=== PATIENT | female | born 1990 | race Caucasian/White ===

== ENCOUNTER 2020-06-17 23:37 | Inpatient (IN) | payer OTHER ==
[~2020-06-17] VITALS: Ht 149.9 cm; Wt 77.6 kg
--- NOTE | 2020-06-17 23:30 | NUR ---
The patient, EVA MOY, 29 y/o, F admitted by MARLON MORGAN MD, was given written information regarding hospital policies, unit procedures and contact persons. RN received report from Aminah HOYT at [place] at 2223, patient was then transported from [place] via EMS at 2330 to room 440 at [place]. Patient was transported by [facility], at that time the RN performed a head to toe assessment on the patient, VSS, afebrile, and pain was rated a 2/10 at that time. Bed is in lowest locked position and the call light is within reach. Valuables were checked and left in the room with the patient. RN will continue to monitor the patient closely.
[2020-06-18] VITALS (7 sets, daily range): BP systolic 105–141; BP diastolic 71–102
[2020-06-18] MEDS ORDERED: ONDANSETRON PF 4 MG/2 ML VIAL. IVP PRN (00:30)
[2020-06-18] MEDS: IV DEXTROSE 5 %-0.45 % NACL 1,000 ML IV SCH ×2 (01:09→16:24)
[2020-06-18] MEDS: fentaNYL PF VIAL 100 MCG/2 ML VIAL IVP PRN ×2 (01:21→12:14)
--- NOTE | 2020-06-18 08:01 | HP ---
ADMIT DATE: 06/18/2020 HISTORY OF PRESENT ILLNESS: The patient is a 29-year-old female patient who presented to the Emergency Room of [facility] with a complaint of flank pain. In fact, her pain was on the left side radiating into her abdomen. The patient states the symptoms started about 3 days ago, but today the pain has been constantly sharp. The patient denies any nausea, vomiting or diarrhea. Denied any fever. Denied any dysuria, frequency or hematuria. She has not taken anything for pain. She was extensively evaluated in the Emergency Room of [facility] and has had lab work that was mostly unremarkable. Urinalysis showed that she has 5-10 wbc's, moderate amount of bacteria. Her test was negative and she had a chest x-ray that was unremarkable; however, her CT scan of the abdomen and pelvis showed that the patient's gallbladder wall is thickened with associated pericholecystic infiltration of the calcified gallstone with most consistent acute cholecystitis. The gallstone is likely seen within the cystic duct with moderate colonic stool content. No bowel obstruction. Trace pleural effusion. She was transferred to [facility] to consult the surgical team. PAST MEDICAL HISTORY: Significant for hypertension. PAST SURGICAL HISTORY: Significant for appendectomy. ALLERGIES: She has no known drug allergies. MEDICATIONS: She is on antihypertensive medication, but does not know the name of it or the dose. FAMILY HISTORY: Unremarkable. SOCIAL HISTORY: She is , has 1 daughter. She does not smoke, drink alcohol or use recreational drugs. She is a [id number] mom. PHYSICAL EXAMINATION: GENERAL: On arrival to the Emergency Room, she looked well and was clearly in no apparent respiratory distress. No pallor, jaundice, cyanosis or thyromegaly. No jugular venous distention. No limb edema. VITAL SIGNS: Her heart rate was 82, blood pressure was 142/80, temperature was 98.3, respiratory rate was 18 and oxygen saturation was 98%. HEAD, EYES, EARS, NOSE AND THROAT: Normocephalic, atraumatic. NECK: Supple. HEART: Showed normal first and second heart sounds. No gallop or murmur. CHEST: Clear to auscultation. No crepitation or rhonchi. ABDOMEN: Slightly distended, soft, nontender. There is no guarding or rigidity. No organomegaly. All hernial orifice intact. Bowel sounds normal. NEUROLOGIC: She is awake, alert, responding appropriately. All cranial nerves intact. EXTREMITIES: She moves extremities without difficulty. She ambulates without assistance or assistive devices. LABORATORY DATA: Showed a white cell count 9300, hemoglobin 14, hematocrit 43, MCV 85 and platelet count 260,000. Her chemistry showed a serum sodium 136, potassium 3.6, chloride 101, bicarbonate 29, anion gap of 6, BUN 14 and creatinine 0.7. Estimated GFR was 98 mL per minute. Her glucose was 96 and calcium was 9.8. Total bilirubin, AST, ALT and alkaline phosphatase were normal. Total protein was 7.9. Albumin was 3.7. Urinalysis showed the urine was straw colored, hazy with a pH of 7, specific gravity of 1.025. The urine was negative for protein, glucose, ketones, blood, nitrite and bilirubin. The urine was negative for leukocyte esterase, 3-5 rbc's, 5-10 wbc's, and moderate amount of bacteria. Her urine test was negative. Her chest x-ray showed the heart is not enlarged. Mediastinal and hilar contours are normal. No focal parenchymal airspace opacity. No pleural effusion or pneumothorax. Her CT scan of the abdomen and pelvis showed that there is trace pleural effusion or pleural thickening. Liver, spleen, adrenal glands and pancreas unremarkable. Duodenal diverticulum is seen. There is wall thickening about the gallbladder with pericholecystic fluid and calcified gallstone consistent with cholecystitis. High density focus within the cystic duct, likely gallstone within the cystic duct. No biliary ductal dilatation. Moderate colonic stool content is seen. Mild infiltration around the hepatic flexure, likely reactive from adjacent gallbladder change. No small or large bowel dilatation or bowel obstruction. A few mildly prominent mesenteric lymph nodes are seen. No abdominal or pelvic lymphadenopathy by size criteria. She has intrauterine device seen within the uterus. Bladder is unremarkable. Fat containing lesion at the lower pole of the right kidney, likely angiomyolipoma. No hydronephrosis and hydroureter. Trace fat containing periumbilical hernia seen. No aggressive osseous lesion is seen. ASSESSMENT: The patient was transferred to [facility] with acute cholecystitis, although her symptoms are not consistent with acute cholecystitis. Her pain mostly was in the left flank area. PLAN: My plan is to keep her n.p.o., continue with IV fluid, IV pain medication and antiemetic, and consult the surgical team for further evaluation and treatment. MARLON MORGAN MD DR: FLIP/raf JOB#: [id number] / [id number]
--- NOTE | 2020-06-18 09:25 | PDOC2 ---
VLAD CABRERA Ian JOURNEYMAN [employer]ET MET[employer] WORKER 06/18/20 0925: CONSULT Date of Consult Date of Consult DATE: 06/18/20 TIME: 09:19 Reason for Consult Reason for Consult: possible cholecystitis Referring Physician Referring Physician: Dr Zhao Identification/Chief Complaint Chief Complaint left flank pain Source Source: Chart review, Patient History of Present Illness Reason for Visit: 3 days of left flank pain, some radiation to left back.. Seemed to happen at night, although yesterday became constant. Some mild nausea, however no emesis. No constipation or diarrhea, no similar pain in past Past Medical History Cardiovascular: HTN Past Surgical History Past Surgical History: Appendectomy Family History Family History: Other (noncontributory to current illness ) Social History No ALCOHOL: rare Drugs: None Current Medications Current Medications Current Medications Fentanyl Citrate (Fentanyl 2ml Vial) 50 mcg PRN Q3HRS PRN IVP PAIN Last administered on 06/18/20at 01:21; Start 06/18/20 at 00:30 Dextrose/Sodium Chloride 1,000 ml @ 75 mls/hr [id number] IV Last administered on 06/18/20at 01:09; Start 06/18/20 at 00:30 Ondansetron HCl (Zofran) 4 mg PRN Q4HRS PRN IVP NAUSEA/VOMITING; Start 06/18/20 at 00:30 Allergies Allergies: Coded Allergies: No Known Drug Allergies (Unverified , 06/18/20) ROS General: No: Chills, Other (fevers ) PSYCHOLOGICAL ROS: No: Anxiety, Depression Eyes: No Blurry vision, No Double vision HEENT: No: Heacaches, Sore Throat Hematological and Lymphatic: No: Bleeding Problems, Blood Clots Gastrointestinal: Yes Other (see hpi) Genitourinary: No Dysuria, No Frequency, No Retention Musculoskeletal: No Joint Pain, No Muscle Pain Neurological: No Impaired Coord/balance, No Numbness/Tingling Skin: No Pruritus, No Rash Physical Exam General: Alert, Oriented X3, Cooperative HEENT: Atraumatic, PERRLA Lungs: Clear to auscultation, Normal air movement Heart: Regular rate, Normal S1, Normal S2 Abdomen: Soft, Other (ND, LUQ TTP, no ttp rUQ) Extremities: No clubbing, No cyanosis Skin: No rashes, No breakdown Neuro: Normal gait, Normal speech Psych/Mental Status: Mental status NL, Mood NL MUSCULOSKELETAL: No deformity, No swelling Vitals VITALS Vital Signs Date Time Temp Pulse Resp B/P (MAP) Pulse Ox O2 Delivery O2 Flow Rate FiO2 06/18/20 07:15 98.3 90 18 105/102 (103) 98 Room Air 98.3 Assessment/Plan Assessment/Plan LUQ pain, left flank pain CT with findings concerning for cholecystitis--no right sided pain, all left/flank will check lipase and US start abx surgery recs pending above DEMARCUS HENNESSY MD 06/19/20 0751: CONSULT Assessment/Plan Assessment/Plan Agree with above VLAD CABRERA APRN Jun 18, 2020 09:25 DEMARCUS HENNESSY MD Jun 19, 2020 07:51
--- NOTE | 2020-06-18 10:09 | NUR ---
SW following. Discussed with RN, pt from home, room air, NPO, abx. Pt having some testing done, surgical recommendations pending result of testing. RN advised no SW needs at this time. SW will continue to follow.
[2020-06-18 10:53] LABS: DIRECT BILIRUBIN 0.1 mg/dL (0.0-0.2); TOTAL BILIRUBIN 0.6 mg/dL (0.2-1.0); TOTAL PROTEIN 8.3 g/dL (6.4-8.2)
--- NOTE | 2020-06-18 11:05 | RAD ---
US ABDOMEN LTD History: Reason: Abnormal CT scan; ABD pain; eval gb / Spl. Instructions: / History: Comparison: CT June 17, 2020. Technique: Transabdominal ultrasound images are obtained of the right upper quadrant. Findings: Liver is normal in echogenicity. Right hepatic lobe measures 16.3 cm. Portal flow is hepatopedal. Gallbladder is difficult to evaluate due to technique and overlying structures. Cholelithiasis. Proba ble gallbladder wall thickening. Common bile duct measures 2.5 mm in diameter. Visualized pancreas is not well seen due to overlying bowel gas. The right kidney measures 10.4 x 4.6 x 4.4 cm. No hydronephrosis. Visualized portions of the aorta and IVC have normal caliber. IMPRESSION: 1. Degraded ultrasound evaluation of the gallbladder. Cholelithiasis with probable gallbladder wall thickening. HIDA scan can further gallbladder function as clinically warranted. Electronically signed by: Tez Hilario DO (06/18/2020 11:03 AM) [id number]
[2020-06-18] MEDS: PIPERACILLIN/TAZOBACTAM 3.375 GM in IV NORMAL SALINE 50ML 50 ML IV SCH ×3 (12:15→23:37)
[2020-06-18] MEDS ORDERED: NIFE60TA90 PO (15:02)
[2020-06-18] MEDS ORDERED: OMEP20CA16 PO (15:02)
[2020-06-18] MEDS: PANTOPRAZOLE 40 MG TABLET.DR. PO SCH (16:24)
[2020-06-19] VITALS (10 sets, daily range): BP systolic 115–133; BP diastolic 71–97
[2020-06-19] MEDS: IV DEXTROSE 5 %-0.45 % NACL 1,000 ML IV SCH ×2 (03:10→16:30)
[2020-06-19] MEDS: PIPERACILLIN/TAZOBACTAM 3.375 GM in IV NORMAL SALINE 50ML 50 ML IV SCH ×3 (06:21→17:39)
[2020-06-19] MEDS ORDERED: MORPHINE SULFATE 2 MG/ML VIAL. IV PRN (07:00)
[2020-06-19] MEDS ORDERED: IV RINGERS,LACTATED 1000ML 1,000 ML IV SCH (07:00)
[2020-06-19] MEDS ORDERED: PROCHLORPERAZINE 10 MG/2 ML VIAL. IV PRN (07:00)
[2020-06-19] MEDS ORDERED: HYDROmorphone 2 MG/ML VIAL IV PRN (07:00)
[2020-06-19] MEDS ORDERED: fentaNYL PF VIAL 100 MCG/2 ML VIAL IV PRN (07:00)
[2020-06-19 07:18] LABS: HEMATOCRIT 41.6 % (36.0-47.0); HEMOGLOBIN 13.8 g/dL (12.0-15.5); RED BLOOD COUNT 4.92 x10^6/uL (3.50-5.40); RED CELL DISTRIBUTION WIDTH 14.4 % (11.5-14.5); WHITE BLOOD COUNT 7.3 x10^3/uL (4.0-11.0)
[2020-06-19] MEDS: PANTOPRAZOLE 40 MG TABLET.DR. PO SCH (07:30)
[2020-06-19 07:50] LABS: ALBUMIN 3.3 g/dL (3.4-5.0); ALBUMIN/GLOBULIN RATIO 0.9 (1.0-1.7); CALCIUM 8.2 mg/dL (8.5-10.1); CREATININE 0.8 mg/dL (0.6-1.0); GFR 84.8; POTASSIUM 3.7 mmol/L (3.5-5.1); TOTAL BILIRUBIN 0.7 mg/dL (0.2-1.0); TOTAL PROTEIN 7.1 g/dL (6.4-8.2)
[2020-06-19] MEDS ORDERED: ONDANSETRON PF 4 MG/2 ML VIAL. ONE (11:48)
[2020-06-19] MEDS ORDERED: ROCURONIUM 50 MG/5 ML VIAL. ONE (11:48)
[2020-06-19] MEDS ORDERED: PROPOFOL 10 MG/ML (20ML) VIAL. IV ONE (11:48)
[2020-06-19] MEDS ORDERED: fentaNYL PF VIAL 250 MCG/5 ML VIAL ONE (11:48)
[2020-06-19] MEDS ORDERED: MIDAZOLAM HCL/PF 2 MG/2 ML VIAL. ONE (11:48)
[2020-06-19] MEDS ORDERED: DEXAMETHASONE SOD PHOS 4 MG/ML VIAL ONE (11:48)
[2020-06-19] MEDS ORDERED: LIDOCAINE 2% PF 5 ML VIAL. ONE (11:48)
[2020-06-19] MEDS ORDERED: BUPIVACAINE MPF 0.25% 30 ML VIAL. ONE (12:13)
[2020-06-19] MEDS ORDERED: SURGICEL HEMOSTAT 4X8 EACH. ONE (12:13)
[2020-06-19] MEDS ORDERED: IOHEXOL 300 MG/ML 50 ML VIAL. ONE (12:13)
--- NOTE | 2020-06-19 12:18 | PN ---
DATE: 06/19/2020 SUBJECTIVE: The patient is resting, slightly propped up in bed, in no apparent respiratory distress. On questioning her, denied any complaint. Nursing staff did not voice any concern and stated that she has an uneventful night. She is scheduled for laparoscopic cholecystectomy this morning. PHYSICAL EXAMINATION: GENERAL: On examining her, she looked well and was clearly in no apparent distress. No pallor, jaundice, cyanosis or thyromegaly. No jugular venous distention. No limb edema. VITAL SIGNS: Her heart rate was 93, blood pressure was 142/86, temperature was 97.4, respiratory rate was 18 and oxygen saturation was 96% on room air. HEENT: Examination of the head, eyes, ears, nose and throat showed normocephalic, atraumatic. NECK: Supple. HEART: Normal first and second heart sounds. No gallop or murmur. CHEST: Clear to auscultation. No crepitation or rhonchi. ABDOMEN: Soft, nontender. NEUROLOGIC: She is grossly intact. Her intake and output are incompletely recorded. LABORATORY DATA: Her lab work this morning showed a white cell count 7300, hemoglobin 14, hematocrit 42, MCV 85 and platelet count 240,000. Her serum sodium was 140, potassium 3.7, chloride 106, bicarbonate 25, anion gap of 9, BUN 7, creatinine 0.8, estimated GFR was 84 mL per minute. Her glucose was 95, calcium was 8.2. Total bilirubin, AST, ALT, alkaline phosphatase were normal. Total protein 7.1, albumin was 3.3. ASSESSMENT: 1. Acute calculous cholecystitis, scheduled for laparoscopic cholecystectomy sometimes this morning. 2. Hypertension. 3. Gastroesophageal reflux disease. MARLON MORGAN MD DR: FLIP/raf JOB#: [id number] / [id number]
[2020-06-19] MEDS ORDERED: KETOROLAC 30 MG/ML VIAL. ONE (13:11)
[2020-06-19] MEDS ORDERED: GLYCOPYRROLATE 1 MG/5 ML VIAL. ONE (13:12)
[2020-06-19] MEDS ORDERED: NEOSTIGMINE METHYLSULFATE 5 MG/5 ML SYRINGE. ONE (13:12)
--- NOTE | 2020-06-19 13:16 | RAD ---
EXAM: INTRAOPERATIVE CHOLANGIOGRAM. HISTORY: Gallbladder disease. Intraoperative cholangiogram with cholecystectomy. COMPARISON: None. FINDINGS: 3 fluoroscopic images are obtained intraoperatively during injection of the cystic duct rem nant after cholecystectomy. There are no filling defects to suggest retained stones. The common duct is not dilated. Fluoroscopy time 34 seconds. IMPRESSION: 1. No evidence of retained stones. Electronically signed by: Kevyn Guevara MD (06/19/2020 1:14 PM) [id number]
--- NOTE | 2020-06-19 13:24 | PDOC4 ---
Operative Note Operative Note Operative Note: Preoperative Diagnosis: Calculus cholecystitis Postoperative Diagnosis: Same Procedure: Laparoscopic cholecystectomy with intraoperative cholangiogram Surgeons: [employer] Manager: SHIRA Eng Anesthesia: Gen. Estimated Blood Loss: 10 mL Specimen: Gallbladder to pathology Drains: None Complications: None Indications: The patient is a 29-year-old female was admitted with abdominal pain. Her evaluation is consistent with calculus cholecystitis. Surgical treatment was offered by means of a laparoscopic cholecystectomy. The risks of surgery were discussed which include bleeding, infection, bile duct injury, bile leak, pain, the potential for additional surgeries or procedures. The patient understands and would like to proceed. Description: The patient was taken to the operating room and laid supine on the operating table. General anesthesia was performed. The abdomen was prepped with ChloraPrep and draped in a standard surgical fashion. A small infraumbilical incision was made with a scalpel. The Veress needle was then inserted and a pneumoperitoneum was then created. A 5 mm trocar was then inserted and the laparoscope was introduced. In the upper midabdomen a 5 mm trocar was inserted and in the right upper quadrant two 2.3 mm mini lap graspers were inserted. The gallbladder was retracted cephalad. The cystic duct was dissected free from surrounding tissues. One clip was placed on the duct near the gallbladder junction. An opening was made in the duct and a cholangiocatheter placed within and secured with a clip. Using contrast dye and fluoroscopy an intraoperative cholangiogram was performed that appeared unremarkable. The clip and catheter were then withdrawn. Three clips were placed on the cystic duct and it was divided. The cystic artery was then identified, dissected free, doubly clipped and divided as well. The gallbladder was then mobilized away from the liver with cautery. The umbilical 5 millimeter trocar was exchanged for an 11 millimeter trocar. The gallbladder was then placed in an endoscopic bag and extracted at the umbilical trocar site. The fascia there was closed with an 0 Vicryl suture. All blood and irrigation fluid was suctioned and hemostasis was good. The remaining ports were removed and the pneumoperitoneum was relieved. The skin incisions were injected with half percent Marcaine with epinephrine, and all were closed using 4-0 Monocryl suture. Steri-Strips and dressings were then applied. The patient tolerated the procedure well and was sent to the recovery room in stable condition. At t he end of the case all counts were correct. DEMARCUS HENNESSY MD Jun 19, 2020 13:24
[2020-06-19] MEDS ORDERED: oxyCODONE/APAP 5/325 1 TAB TABLET PO PRN (13:45)
[2020-06-19] MEDS ORDERED: fentaNYL PF VIAL 100 MCG/2 ML VIAL ONE (13:51)
[2020-06-19] MEDS: fentaNYL PF VIAL 100 MCG/2 ML VIAL IV PRN ×2 (14:04→14:18)
[2020-06-19] MEDS: oxyCODONE/APAP 5/325 1 TAB TABLET PO PRN ×2 (16:16→22:09)
[2020-06-20] MEDS: PIPERACILLIN/TAZOBACTAM 3.375 GM in IV NORMAL SALINE 50ML 50 ML IV SCH ×3 (00:04→11:52)
[2020-06-20 02:49] VITALS: BP 126/80
[2020-06-20] MEDS: IV DEXTROSE 5 %-0.45 % NACL 1,000 ML IV SCH (05:39)
[2020-06-20 07:00] VITALS: BP 128/88
[2020-06-20 08:40] VITALS: BP 128/88
[2020-06-20] MEDS: PANTOPRAZOLE 40 MG TABLET.DR. PO SCH (08:40)
[2020-06-20] MEDS ORDERED: OXYC1TAB15 PO (08:44)
--- NOTE | 2020-06-20 08:47 | PDOC ---
VLAD CABRERA CHANNEL SUPERVISOR 06/20/20 0847: SURGICAL PROGRESS NOTE DATE: 06/20/20 TIME: 08:45 Subjective left sided pain resolved mainly sore with movement to incisions now tolerating breakfast Vital Signs Vital Signs Date Time Temp Pulse Resp B/P (MAP) Pulse Ox O2 Delivery O2 Flow Rate FiO2 06/20/20 08:40 67 128/88 06/20/20 07:00 97.3 16 97 Room Air 97.3 06/19/20 17:18 10.0 I&O Intake and Output 06/20/20 07:00 Intake Total 1600 ml Output Total 660 ml Balance 940 ml Intake Oral 400 ml IV Total 1200 ml Output Urine Total 650 ml Estimated Blood Loss 10 ml # Voids 2 General: Alert, Oriented X3, Cooperative Abdomen: Soft, Other (lap dressings dry, incisional TTP) Labs Laboratory Tests Test 06/18/20 10:32 06/19/20 07:07 Total Bilirubin 0.6 mg/dL (0.2-1.0) 0.7 mg/dL (0.2-1.0) Direct Bilirubin 0.1 mg/dL (0.0-0.2) Aspartate Amino Transf (AST/SGOT) 18 U/L (15-37) 16 U/L (15-37) Alanine Aminotransferase (ALT/SGPT) 26 U/L (14-59) 26 U/L (14-59) Alkaline Phosphatase 115 U/L (46-116) 99 U/L (46-116) Total Protein 8.3 g/dL (6.4-8.2) 7.1 g/dL (6.4-8.2) Albumin 4.0 g/dL (3.4-5.0) 3.3 g/dL (3.4-5.0) Lipase 100 U/L (73-393) White Blood Count 7.3 x10^3/uL (4.0-11.0) Red Blood Count 4.92 x10^6/uL (3.50-5.40) Hemoglobin 13.8 g/dL (12.0-15.5) Hematocrit 41.6 % (36.0-47.0) Mean Corpuscular Volume 85 fL (79-100) Mean Corpuscular Hemoglobin 28 pg (25-35) Mean Corpuscular Hemoglobin Concent 33 g/dL (31-37) Red Cell Distribution Width 14.4 % (11.5-14.5) Platelet Count 240 x10^3/uL (140-400) Sodium Level 140 mmol/L (136-145) Potassium Level 3.7 mmol/L (3.5-5.1) Chloride Level 106 mmol/L (98-107) Carbon Dioxide Level 25 mmol/L (21-32) Anion Gap 9 (6-14) Blood Urea Nitrogen 7 mg/dL (7-20) Creatinine 0.8 mg/dL (0.6-1.0) Estimated GFR (Cockcroft-Gault) 84.8 BUN/Creatinine Ratio 9 (6-20) Glucose Level 95 mg/dL (70-99) Calcium Level 8.2 mg/dL (8.5-10.1) Albumin/Globulin Ratio 0.9 (1.0-1.7) Assessment/Plan s/p chava stable surgically can DC per primary Justicifation of Admission Dx: Justifications for Admission: Justification of Admission Dx: Yes Comments: cholecystitis DEMARCUS HENNESSY MD 06/20/20 1255: SURGICAL PROGRESS NOTE Assessment/Plan Agree with above VLAD CABRERA APRN Jun 20, 2020 08:47 DEMARCUS HENNESSY MD Jun 20, 2020 12:55
[2020-06-20 09:08] LABS: HEMATOCRIT 40.5 % (36.0-47.0); HEMOGLOBIN 13.2 g/dL (12.0-15.5); RED BLOOD COUNT 4.74 x10^6/uL (3.50-5.40); RED CELL DISTRIBUTION WIDTH 14.5 % (11.5-14.5); WHITE BLOOD COUNT 10.5 x10^3/uL (4.0-11.0)
[2020-06-20 09:44] LABS: ALBUMIN 3.1 g/dL (3.4-5.0); ALBUMIN/GLOBULIN RATIO 0.8 (1.0-1.7); CALCIUM 8.9 mg/dL (8.5-10.1); CREATININE 0.8 mg/dL (0.6-1.0); GFR 84.8; POTASSIUM 3.5 mmol/L (3.5-5.1); TOTAL BILIRUBIN 0.7 mg/dL (0.2-1.0)
--- NOTE | 2020-06-20 09:44 | NUR ---
SW following. Discussed with RN, pt from home, room air, GI soft. Pt had surgery 06/19/20. RN advised no SW needs, anticipates pt will discharge home with self care today. SW will continue to follow.
--- NOTE | 2020-06-20 12:48 | DS ---
DATE OF DISCHARGE: 06/20/2020 HOSPITAL COURSE: The patient is a 29-year-old female patient who was admitted originally with a complaint of left flank pain; however, further investigation showed that she has actually acute cholecystitis and she underwent laparoscopic cholecystectomy with intraoperative cholangiogram. Postoperatively, she did very well. She is tolerating her diet and has been up and about. Denied any complaint and a decision was made to discharge her home. PHYSICAL EXAMINATION: GENERAL: When I saw her today, she looked well and was clearly in no apparent respiratory distress. No pallor, jaundice, cyanosis or thyromegaly. No jugular venous distention. No limb edema. VITAL SIGNS: Her heart rate was 67, blood pressure was 128/88, temperature 97.3, respiratory rate was 16, and oxygen saturation was 97%. ABDOMEN: Soft. Mild tenderness in the right upper quadrant. There is no guarding or rigidity. No organomegaly. All hernial orifice intact. Bowel sounds normal. NEUROLOGIC: She is grossly intact. LABORATORY DATA: Her white cell count was 10,500, hemoglobin 13, hematocrit 40, MCV 86, and platelet count 257,000. Serum sodium 140, potassium 3.5, chloride 106, bicarbonate 22, anion gap of 12, BUN 6, creatinine 0.8, estimated GFR was 85 mL per minute, her glucose 103, calcium was 8.9. Total bilirubin, AST, ALT, alkaline phosphatase were normal. Total protein 7, albumin was 3.1. Serum lipase was 69. FINAL DISCHARGE DIAGNOSES: Acute cholecystitis, status post laparoscopic cholecystectomy, hypertension, gastroesophageal reflux disease. DICTATION ENDS HERE MARLON MORGAN MD DR: FLIP/raf JOB#: [id number] / [id number]
--- NOTE | 2020-06-20 12:50 | NUR ---
Discharge Note: EVA MOY FISK Discharge instructions and discharge home medications reviewed with Patient and a copy given. All questions have been answered and understanding verbalized. The following instructions and handouts were given: information about incision sites, diet, activity, medications, follow up appointments, etc. Discontinued lines and drains: IV line in left AC removed, catheter tip intact. Patient discharged to home with self care with family member, wheelchair used for mobility to discharge vehicle.
== END 2020-06-20 12:50 | disposition home or self-care (01) | DRG 419 ==
LOC: 4 NORTH 23:37
PROVIDERS: ADMIT Internal Medicine; ATTEND Internal Medicine
PROC: BF101ZZ Fluoroscopy of Bile Ducts using Low Osmolar Contrast (ICD-10-PCS; 2020-06-19)
PROC: 0FT44ZZ Resection of Gallbladder, Percutaneous Endoscopic Approach (ICD-10-PCS; principal; 2020-06-19 11:30)
DX: K80.00 Calculus of gallbladder with acute cholecystitis without obstruction (principal); I10 Essential (primary) hypertension; K21.9 Gastro-esophageal reflux disease without esophagitis
CPT/HCPCS: 36415; 74300; 76705; 80053; 80076; 83690; 85027; 88304; J1100; J1885; J2250; J2405; J2543; J2704; J2710; J3010; J3490; J7042; J7120; Q9967; G0378